=== PATIENT | female | born 1945 | race Caucasian/White ===

== ENCOUNTER 2016-08-23 16:02 | Emergency (ER) | payer BC, MEDICARE ==
[2016-08-23 17:03] VITALS: BP 147/90
--- NOTE | 2016-08-23 23:15 | ER ---
DATE SEEN: 08/23/2016 TIME SEEN: The patient was seen at 1640 hours. CHIEF COMPLAINT: Lightheadedness and dizziness. HISTORY OF PRESENT ILLNESS: She was lying in bed, got up quickly, felt dizzy and fell to the floor onto her knees and crawled on her knees because she was so dizzy and lightheaded. She had discomfort in her teeth and neck, which is unusual for her. She had slight shortness of breath without diaphoresis. She did not hit her head, did not lose consciousness. No vomiting or nausea. She has had known aortic stenosis and near syncope in the past. This episode was worse than some of the episodes she has had before. The tooth pain was a new pain. No fever. No sore throat. No cough. No abdominal pain, nausea, vomiting, diarrhea, back pain or arm pain. She is not aware of her ejection fraction, valve cross-section measurements or flow velocity through her aortic valve. She is seen by a master in chancery on a yearly basis and wonders if she is a candidate aforintravascular versus thoracotomy replacement. She is attended by her daughter. PAST MEDICAL HISTORY: No serious illnesses, hospitalizations, injuries, or allergies. I did not inquire regarding other surgeries. PHYSICAL EXAMINATION: GENERAL: The patient is an alert, thin, asthenic woman, woman in no acute distress or pain. VITAL SIGNS: Blood pressure 147/90, heart rate 84 and regular, respirations 18, oxygen saturation 100%, and temperature is 36.4 degrees. HEENT: PERRLA intact. Pharynx without abnormality. NECK: Supple without abnormal jugular venous distention or abnormal carotid pulsations. No thyromegaly or masses in the neck. LUNGS: Clear to auscultation without rales, rhonchi, or wheezes. HEART: S1, S2. There is a slight splitting S2. She has a systolic crescendo and decrescendo ejection murmur that radiates to the carotids, most notable in the left second parasternal intercostal space, less notable in the right intercostal space #2 and the left axilla. ABDOMEN: No hepatosplenomegaly. No abdominal discomfort. EXTREMITIES: Without edema. NEUROLOGIC: Deep tendon reflexes normal in upper and lower extremities. Cranial nerves 2 through 12 intact. LABORATORY DATA: White count 10,900, PMNs 69, lymphocytes 22, monos 7, and hemoglobin 14.3. D-dimer less than 100. Troponin less than 0.01. AST 33 and ALT is 22, normal. Remainder of complete metabolic panel is normal. Urinalysis negative with moderate leukocyte esterase, but does not fit the criteria for urine culture, thus not performed. ASSESSMENT: Aortic stenosis. The patient is dizzy from a vasovagal response overlaid on fixed cardiac output against the stenotic valve. She does not have significant stenosis that would warrant cardiac valvular displacements. It is very possible that because of the patient's experience of increased new sensation of dental pain and neck pain, this could be an expression of angina or ischemia that occurred with the transient drop in pressure when vasodilation occurred with the vasovagal effect of standing up quickly; decreasing cardiac return, cardiac output, and thereby mild cerebral ischemia resulting in her falling to her knees, but not hurting herself. The patient is advised to follow up with her doctor. No change in medicines. Call master in chancery on Thursday, perhaps the master in chancery would want to repeat the echo, check the ejection fraction and the diameter; surface area of the valve, to see if there has been a change since her last echo was performed approximately in February 2016. /[id number]ARCIA
--- NOTE | 2016-08-25 14:05 | CR ---
INDICATION: Short of breath, syncope, aortic stenosis. CHEST: PA and lateral views of the chest were obtained 08/23/2016. No comparisons were available. Slightly prominent AP diameter and minimally flattened diaphragm leaves suggest COPD. Overlying EKG leads are noted. An active infiltrate or effusion was not identified. An appearance of demineralization suggests osteoporosis correlate clinically. Heart did not appear enlarged and appeared normal in shape. The aorta is tortuous with calcification in the arch. Calcification in brachiocephalic vessels also suggested. IMPRESSION: 1. No acute process. 2. ASD aorta/ASD. 3. Probable COPD. 4. Probable osteoporosis. MTDD
== END 2016-08-23 19:10 | disposition home or self-care (01) ==
LOC: FB.ED 16:02
DX: I35.0 Nonrheumatic aortic (valve) stenosis (principal)
CPT/HCPCS: 36415; 71020; 80053; 81003; 83605; 84484; 85025; 85379; 93005; 99283; 99284

== ENCOUNTER 2021-11-09 13:32 | Emergency (ER) | payer MEDICARE | END 2021-11-09 14:00 | disposition left against medical advice (07) | LOC: FB.ED 13:32 | DX: Z53.21 Procedure and treatment not carried out due to patient leaving prior to being seen by health care provider (principal) ==